=== PATIENT | male | born 1950 | race Caucasian/White ===

== ENCOUNTER 2016-11-27 06:37 | Emergency (ER) | payer BC, OTHER ==
[~2016-11-27] VITALS: Ht 177.8 cm; Wt 90.7 kg
[2016-11-27 07:14] VITALS: BP 152/85
--- NOTE | 2016-11-27 07:14 | PHYS DOC ---
Past Medical History Past Medical History: Hypertension, [place], Other Additional Past Medical Histor: ENLARGED PROSTATE Past Surgical History: Other Additional Past Surgical Histo: HERNIA, BACK, cardiac stent Alcohol Use: None Drug Use: None Adult General Chief Complaint Chief Complaint: NOSEBLEED [facility] HPI Patient is a 65 year old male who presents with intermittent nosebleeds over the past 2 weeks. His nose started bleeding this morning, and he was unable to control bleeding with direct pressure as usual, so he called EMS. He denies nasal trauma, cold-like symptoms or allergy symptoms. He denies taking blood thinners. He denies fatigue or lightheadedness. Review of Systems Review of Systems Constitutional: Denies fever or chills [] Eyes: Denies change in visual acuity, redness, or eye pain [] HENT: Denies nasal congestion or sore throat [] Respiratory: Denies cough or shortness of breath [] Cardiovascular: No additional information not addressed in HPI [] GI: Denies abdominal pain, nausea, vomiting, bloody stools or diarrhea [] : Denies dysuria or hematuria [] Musculoskeletal: Denies back pain or joint pain [] Integument: Denies rash or skin lesions [] Neurologic: Denies headache, focal weakness or sensory changes [] Endocrine: Denies polyuria or polydipsia [] Allergies Allergies Allergies Coded Allergies Type Severity Reaction Last Updated Verified No Known Drug Allergies 09/18/13 No Physical Exam Physical Exam Constitutional: Well developed, well nourished, no acute distress, non-toxic appearance. [] HENT: Normocephalic, atraumatic, bilateral external ears normal, oropharynx moist, no oral exudates. Right anterior nasal venous plexus with a formed clot; left nose normal. [] Eyes: PERRLA, EOMI. [] Neck: Normal range of motion, supple. [] Cardiovascular:Heart rate regular rhythm [] Lungs & Thorax: Bilateral breath sounds clear to auscultation [] Abdomen: Bowel sounds normal, soft, no tenderness. [] Skin: Warm, dry, no erythema, no rash. [] Back: Normal range of motion. [] Extremities: No tenderness, ROM intact. [] Neurologic: Alert and oriented X 3, normal motor function, normal sensory function, no focal deficits noted. [] Psychologic: Affect normal, judgement normal, mood normal. [] Current Patient Data Vital Signs Vital Signs Date Time Temp Pulse Resp B/P Pulse Ox O2 Delivery O2 Flow Rate FiO2 11/27/16 06:50 98.7 80 16 143/98 96 Room Air 98.7 Course & Med Decision Making Course & Med Decision Making Nosebleed controlled with nasal clamp of 10 minutes. Anticipatory guidance provided. Return precautions given. He understands and agrees with plan. Dragon Disclaimer Dragon Disclaimer This electronic medical record was generated, in whole or in part, using a voice recognition dictation system. Departure Departure Impression: Primary Impression: Acute anterior epistaxis Disposition: 01 HOME, SELF-CARE Condition: STABLE Referrals: AUSTIN FAYE Jr, MD (PCP) Patient Instructions: Nosebleed, [id number] Additional Instructions: Follow-up with your primary care doctor. Return for any concerns. Savita SAWYER MD Nov 27, 2016 07:13
== END 2016-11-27 07:22 | disposition home or self-care (01) ==
LOC: ER 06:37
DX: R04.0 Epistaxis (principal); I10 Essential (primary) hypertension; I25.2 Old myocardial infarction; Z95.5 Presence of coronary angioplasty implant and graft
CPT/HCPCS: 99283

== ENCOUNTER 2017-05-18 11:04 | Inpatient (IN) | payer BC, MEDICARE ==
[~2017-05-18] VITALS: Ht 162.6 cm; Wt 94.3 kg
--- NOTE | 2017-05-18 11:25 | EKG ---
[facility] [address] [place] [address] Test Date: 2017-05-18 Test Time: 11:17:06 Pat Name: YONI DONALD Department: Room: Gender: M [employer]: : 1950 Requested By: LANA KHAN Order Number: [id number] Reading MD: Aisha Castro Measurements Intervals Ayden Rate: 72 P: 39 GA: 192 QRS: 20 QRSD: 76 T: 11 QT: 352 QTc: 387 Interpretive Statements SINUS RHYTHM VENTRICULAR PREMATURE COMPLEX(ES) LEFT ATRIAL ABNORMALITY QRS(T) CONTOUR ABNORMALITY CONSIDER ANTEROSEPTAL MYOCARDIAL DAMAGE Electronically Signed On 05-18-2017 19:03:07 CDT by Aisha Castro
[2017-05-18 11:47] LABS: BASO % 1 % (0-3); EOS % 1 % (0-3); HEMATOCRIT 46.4 % (39.0-53.0); HEMOGLOBIN 16.3 g/dL (13.0-17.5); LYMPH % 16 % (24-48); MEAN CORPUSCULAR HEMOGLOBIN 28 pg (25-35); MEAN CORPUSCULAR HGB CONC 35 g/dL (31-37); MEAN CORPUSCULAR VOLUME 80 fL (79-100); MONO % 5 % (0-9); NEUT % 77 % (31-73); PLATELET COUNT 176 x10^3/uL (140-400); RED BLOOD COUNT 5.77 x10^6/uL (4.30-5.70); RED CELL DISTRIBUTION WIDTH 14.5 % (11.5-14.5)
--- NOTE | 2017-05-18 11:50 | PHYS DOC ---
Past Medical History Past Medical History: Hypertension, [place], Other Additional Past Medical Histor: ENLARGED PROSTATE Past Surgical History: Other Additional Past Surgical Histo: HERNIA, BACK, cardiac stent Alcohol Use: None Drug Use: None Adult General Chief Complaint Chief Complaint: SLURRED SPEECH [facility] HPI Patient is a 66 year old male presenting to the emergency department for evaluation of slurred speech this started 2 days ago. Patient denies any headache unilateral weakness numbness tingling or change in vision difficulty swallowing or ambulating. Patient says that he does not take an aspirin a day and has never had a stroke in the past. Patient seems anxious but he is in no obvious distress with normal vital signs. Review of Systems Review of Systems Constitutional: Denies fever or chills [] Eyes: Denies change in visual acuity, redness, or eye pain [] HENT: Denies nasal congestion or sore throat [] Respiratory: Denies cough or shortness of breath [] Cardiovascular: No additional information not addressed in HPI [] GI: Denies abdominal pain, nausea, vomiting, bloody stools or diarrhea [] : Denies dysuria or hematuria [] Musculoskeletal: Denies back pain or joint pain [] Integument: Denies rash or skin lesions [] Neurologic: Denies headache, focal weakness or sensory changes [] Allergies Allergies Allergies Coded Allergies Type Severity Reaction Last Updated Verified No Known Drug Allergies 09/18/13 No Physical Exam Physical Exam Constitutional: Well developed, well nourished, no acute distress, non-toxic appearance. [] HENT: Normocephalic, atraumatic, bilateral external ears normal, oropharynx moist, no oral exudates, nose normal. [] Eyes: PERRLA, EOMI, conjunctiva normal, no discharge. [] Neck: Normal range of motion, no tenderness, supple, no stridor. [] Cardiovascular:Heart rate regular rhythm, no murmur [] Lungs & Thorax: Bilateral breath sounds clear to auscultation [] Abdomen: Bowel sounds normal, soft, no tenderness, no masses, no pulsatile masses. [] Skin: Warm, dry, no erythema, no rash. [] Back: No tenderness, no CVA tenderness. [] Extremities: No tenderness, no cyanosis, no clubbing, ROM intact, no edema. [] Neurologic: Alert and oriented X 3, normal motor function, normal sensory function, no focal deficits noted. Slurred speech is noted. Current Patient Data Vital Signs Vital Signs Date Time Temp Pulse Resp B/P (MAP) Pulse Ox O2 Delivery O2 Flow Rate FiO2 05/18/17 12:21 69 20 163/94 (117) 95 05/18/17 11:09 98.1 Room Air 98.1 Lab Values Laboratory Tests Test 05/18/17 11:30 05/18/17 12:05 White Blood Count 6.0 x10^3/uL (4.0-11.0) Red Blood Count 5.77 x10^6/uL (4.30-5.70) H Hemoglobin 16.3 g/dL (13.0-17.5) Hematocrit 46.4 % (39.0-53.0) Mean Corpuscular Volume 80 fL (79-100) Mean Corpuscular Hemoglobin 28 pg (25-35) Mean Corpuscular Hemoglobin Concent 35 g/dL (31-37) Red Cell Distribution Width 14.5 % (11.5-14.5) Platelet Count 176 x10^3/uL (140-400) Neutrophils (%) (Auto) 77 % (31-73) H Lymphocytes (%) (Auto) 16 % (24-48) L Monocytes (%) (Auto) 5 % (0-9) Eosinophils (%) (Auto) 1 % (0-3) Basophils (%) (Auto) 1 % (0-3) Neutrophils # (Auto) 4.6 x10^3uL (1.8-7.7) Lymphocytes # (Auto) 1.0 x10^3/uL (1.0-4.8) Monocytes # (Auto) 0.3 x10^3/uL (0.0-1.1) Eosinophils # (Auto) 0.0 x10^3/uL (0.0-0.7) Basophils # (Auto) 0.0 x10^3/uL (0.0-0.2) Prothrombin Time 12.6 SEC (11.7-14.0) Prothrombin Time INR 1.0 (0.8-1.1) PTT 31 SEC (24-38) Sodium Level 141 mmol/L (136-145) Potassium Level 4.2 mmol/L (3.5-5.1) Chloride Level 104 mmol/L (98-107) Carbon Dioxide Level 26 mmol/L (21-32) Anion Gap 11 (6-14) Blood Urea Nitrogen 18 mg/dL (8-26) Creatinine 0.9 mg/dL (0.7-1.3) Estimated GFR (Cockcroft-Gault) 84.4 BUN/Creatinine Ratio 20 (6-20) Glucose Level 164 mg/dL (70-99) H Calcium Level 9.1 mg/dL (8.5-10.1) Magnesium Level 2.1 mg/dL (1.8-2.4) Total Bilirubin 0.8 mg/dL (0.2-1.0) Aspartate Amino Transferase (AST) 23 U/L (15-37) Alanine Aminotransferase (ALT) 28 U/L (16-63) Alkaline Phosphatase 59 U/L (46-116) Troponin I Quantitative < 0.017 ng/mL (0.000-0.055) VC-Brv-C-Type Natriuretic Peptide 88 pg/mL (0-124) Total Protein 7.8 g/dL (6.4-8.2) Albumin 3.8 g/dL (3.4-5.0) Albumin/Globulin Ratio 1.0 (1.0-1.7) Lipase 174 U/L (73-393) Thyroid Stimulating Hormone (TSH) 0.954 uIU/mL (0.358-3.74) Ethyl Alcohol Level < 10 mg/dL (0-10) Urine Collection Type Unknown Urine Color Yellow Urine Clarity Clear Urine pH 6.0 Urine Specific [place] 1.025 Urine Protein Negative mg/dL (NEG-TRACE) Urine Glucose (UA) Negative mg/dL (NEG) Urine Ketones (Stick) Negative mg/dL (NEG) Urine Blood Negative (NEG) Urine Nitrite Negative (NEG) Urine Bilirubin Negative (NEG) Urine Urobilinogen Dipstick 0.2 mg/dL (0.2 mg/dL) Urine Leukocyte Esterase Negative (NEG) Urine RBC Occ /HPF (0-2) Urine WBC Occ /HPF (0-4) Urine Squamous Epithelial Cells Occ /LPF Urine Bacteria 0 /HPF (0-FEW) Urine Mucus Mod /LPF Urine Opiates Screen Neg (NEG) Urine Methadone Screen Neg (NEG) Urine Barbiturates Neg (NEG) Urine Phencyclidine Screen Neg (NEG) Urine Amphetamine/Methamphetamine Neg (NEG) Urine Benzodiazepines Screen Neg (NEG) Urine Cocaine Screen Neg (NEG) Urine Cannabinoids Screen Neg (NEG) Urine Ethyl Alcohol Neg (NEG) Laboratory Tests 05/18/17 11:30 Laboratory Tests 05/18/17 11:30 EKG EKG [] Radiology/Procedures Radiology/Procedures Exam performed: CT scan of the head without contrast. Date of Service: 05/18/17. Comparison: Not available. Clinical History: Slurred speech. Technique: Helical acquisitions are obtained from the foramen magnum to the vertex without intravenous administration of contrast. Findings: Prominence of cortical sulci and ventricular system is noted consistent with age related atrophy. Normal sebastian-white differentiation is maintained. There is no extra axial fluid collection, intraparenchymal hemorrhage or mass lesion. The visualized portions of the orbits, paranasal sinuses and the mastoid air cells appear clear. The calvarium is intact. Impression: 1. No acute intracranial process detected. 2. Mild age-related atrophy and bilateral periventricular small vessel ischemic changes PQRS Compliance Statement: One or more of the following individualized dose reduction techniques were utilized for this examination: 1. Automated exposure control 2. Adjustment of the mA and/or kV according to patient size 3. Use of iterative reconstruction technique DICTATED and SIGNED BY: LAI RUIZ MD DATE: 05/18/17 1152 Course & Med Decision Making Course & Med Decision Making Patient with isolated slurred speech that started 2 days ago. He is not on any medications that she calls slurred speech and there is no signs of Mojica's palsy. Patient will get a stroke evaluation and possibly require admission. Dragon Disclaimer Dragon Disclaimer This electronic medical record was generated, in whole or in part, using a voice recognition dictation system. Departure Departure Impression: Primary Impression: CVA (cerebral vascular accident) Additional Impressions: Slurred speech Hypertension Disposition: HOME, SELF-CARE Condition: STABLE Referrals: AUSTIN FAYE Jr, MD (PCP) Problem Qualifiers Primary Impression: CVA (cerebral vascular accident) CVA mechanism: unspecified Qualified Codes: I63.9 - Cerebral infarction, unspecified LANA KHAN DO May 18, 2017 11:50
--- NOTE | 2017-05-18 11:56 | RAD ---
Exam performed: CT scan of the head without contrast. Date of Service: 05/18/17. Comparison: Not available. Clinical History: Slurred speech. Technique: Helical acquisitions are obtained from the foramen magnum to the vertex without intravenous administration of contrast. Findings: Prominence of cortical sulci and ventricular system is noted consistent with age related atrophy. Normal sebastian-white differentiation is maintained. There is no extra axial fluid collection, intraparenchymal hemorrhage or mass lesion. The visualized portions of the orbits, paranasal sinuses and the mastoid air cells appear clear. The calvarium is intact. Impression: 1. No acute intracranial process detected. 2. Mild age-related atrophy and bilateral periventricular small vessel ischemic changes PQRS Compliance Statement: One or more of the following individualized dose reduction techniques were utilized for this examination: 1. Automated exposure control 2. Adjustment of the mA and/or kV according to patient size 3. Use of iterative reconstruction technique
[2017-05-18 12:00] LABS: PROTHROMBIN TIME PATIENT 12.6 SEC (11.7-14.0)
[2017-05-18 12:01] LABS: CALCIUM 9.1 mg/dL (8.5-10.1); CREATININE 0.9 mg/dL (0.7-1.3); GFR 84.4; POTASSIUM 4.2 mmol/L (3.5-5.1)
[2017-05-18 12:09] LABS: ALBUMIN 3.8 g/dL (3.4-5.0); MAGNESIUM 2.1 mg/dL (1.8-2.4); TOTAL BILIRUBIN 0.8 mg/dL (0.2-1.0); TOTAL PROTEIN 7.8 g/dL (6.4-8.2)
[2017-05-18 12:29] LABS: BARBITURATES NEG (NEG); BENZODIAZEPINES NEG (NEG); BILIRUBIN,URINE NEGATIVE (NEG); CANNABINOIDS NEG (NEG); COCAINE NEG (NEG); GLUCOSE,URINE NEGATIVE (NEG); METHADONE NEG (NEG); NITRITE,URINE NEGATIVE (NEG); OPIATES NEG (NEG); PHENCYCLIDINE NEG (NEG); PROTEIN,URINE NEGATIVE (NEG-TRACE); UROBILINOGEN,URINE 0.2 mg/dL (0.2 mg/dL)
[2017-05-18] MEDS ORDERED: ASPIRIN ENTERIC COATED 325 MG TABLET.DR. PO ONE (12:45)
[2017-05-18] MEDS ORDERED: ONDANSETRON PF 4 MG/2 ML VIAL. IV PRN (12:45)
[2017-05-18 12:51] LABS: BACTERIA,URINE 0 /HPF (0-FEW); RBC,URINE OCC /HPF (0-2); SQUAMOUS EPITHELIAL CELL,UR OCC /LPF; WBC,URINE OCC /HPF (0-4)
[2017-05-18 15:30] VITALS: BP 163/88
--- NOTE | 2017-05-18 17:47 | PDOC1 ---
History and Physical Date of Admission Date of Admission DATE: 05/18/17 TIME: 17:47 Source Source: Chart review, Patient History of Present Illness History of Present Illness Mr. Christensen, is a 66 year old male admit for new slurred speech over 3 days. Seems to be worseneing. He has no other complaint or symptoms, but noticed that he was having trouble taking 3 days ago. No weakness or confusion, but he does possibly describe some minimal expressive aphasia "I just couldn't say things right" Patient denies any headache unilateral weakness numbness tingling or change in vision difficulty swallowing or ambulating. 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 Cardiovascular: CAD, HTN Pulmonary: No pertinent hx GI: No pertinent hx Hepatobiliary: No pertinent hx Psych: No pertinent hx Rheumatologic: No pertinent hx, Fibromyalgia ENT: No pertinent hx Social History Smoke: Quit (many years ago) ALCOHOL: none Drugs: None Current Problem List Problem List Problems Medical Problems: (1) Hypertension Status: Acute (2) Slurred speech Status: Acute Problems: Current Medications Current Medications Current Medications Aspirin (Ecotrin) 325 mg 1X ONCE PO Last administered on 05/18/17t 13:20; Start 05/18/17 at 12:45; Stop 05/18/17 at 12:48; Status DC Ondansetron HCl (Zofran) 4 mg PRN Q8HRS PRN IV NAUSEA/VOMITING; Start 05/18/17 at 12:45; Stop 05/19/17 at 12:44 Active Scripts Active Allergies Allergies: Coded Allergies: No Known Drug Allergies (Unverified , 09/18/13) ROS General: No: Chills, Night Sweats, Fatigue, Malaise, Appetite, Other PSYCHOLOGICAL ROS: No: Anxiety, Behavioral Disorder, Concentration difficultie , Decreased libido, Depression, Disorientation, Hallucinations, Hostility, Irritablity, Memory difficulties, Mood Swings, Obsessive thoughts, Suicidal ideation, Other Eyes: No Blurry vision, No Decreased vision, No Double vision, No Dry eyes, No Excessive tearing, No Eye Pain, No Itchy Eyes, No Loss of vision, No Photophobia , No Scotomata, No Uses contacts, No Uses glasses, No Other HEENT: No: Heacaches, Visual Changes, Hearing change, Nasal congestion, Nasal discharge, Oral lesions, Sinus pain, Sore Throat, Epistaxis, Sneezing, Snoring, Tinnitus, Vertigo, Vocal changes, Other ALLERGY AND IMMUNOLOGY: No: Hives, Insect Bite Sensitivity, Itchy/Watery Eyes, Nasal Congestion, Post Nasal Drip, Seasonal Allergies, Other Respiratory: No: Cough, Hemoptysis, Orthopnea, Pleuritic Pain, Shortness of breath, SOB with excertion, Sputum Changes, Stridor, Tachypnea, Wheezing, Other Cardiovascular: No Chest Pain, No Palpitations, No Orthopnea, No Paroxysmal Noc. Dyspnea, No Edema, No Lt Headedness, No Other Gastrointestinal: No Nausea, No Vomiting, No Abdominal Pain, No Diarrhea, No Constipation, No Melena, No Hematochezia, No Other Genitourinary: No Dysuria, No Frequency, No Incontinence, No Hematuria, No Retention, No Discharge, No Urgency, No Pain, No Flank Pain, No Other, No , No , No , No , No , No , No Musculoskeletal: No Gait Disturbance, No Joint Pain, No Joint Stiffness, No Joint Swelling, No Muscle Pain, No Muscular Weakness, No Pain In:, No Swelling In:, No Other Neurological: Yes Speech Problems, No Behavorial Changes, No Bowel/Bladder ControlChng, No Confusion, No Dizziness, No Gait Disturbance, No Headaches, No Impaired Coord/balance, No Memory Loss, No Numbness/Tingling, No Seizures, No Tremors, No Visual Changes, No Weakness, No Other Skin: No Dry Skin, No Eczema, No Hair Changes, No Lumps, No Mole Changes, No Mottling, No Nail Changes, No Pruritus, No Rash, No Skin Lesion Changes, No Other, No Acne Physical Exam General: Alert, Oriented X3, Cooperative, No acute distress HEENT: Atraumatic, PERRLA, EOMI Lungs: Clear to auscultation, Normal air movement Heart: no gallops Abdomen: Normal bowel sounds, Soft Rectal Exam: not examined Extremities: No clubbing, No edema Neuro: Normal gait, Sensation intact, Cranial nerves 3-12 NL, Other (clear on stroke scale, but slurring speech, speaking like he has marbles in his mouth, garbled speech) Psych/Mental Status: Mood NL Vitals Vitals Vital Signs Date Time Temp Pulse Resp B/P (MAP) Pulse Ox O2 Delivery O2 Flow Rate FiO2 05/18/17 13:20 70 20 161/95 (117) 95 05/18/17 11:09 98.1 Room Air 98.1 Labs Labs Laboratory Tests Test 05/18/17 11:30 05/18/17 12:05 White Blood Count 6.0 x10^3/uL (4.0-11.0) Red Blood Count 5.77 x10^6/uL (4.30-5.70) Hemoglobin 16.3 g/dL (13.0-17.5) Hematocrit 46.4 % (39.0-53.0) Mean Corpuscular Volume 80 fL (79-100) Mean Corpuscular Hemoglobin 28 pg (25-35) Mean Corpuscular Hemoglobin Concent 35 g/dL (31-37) Red Cell Distribution Width 14.5 % (11.5-14.5) Platelet Count 176 x10^3/uL (140-400) Neutrophils (%) (Auto) 77 % (31-73) Lymphocytes (%) (Auto) 16 % (24-48) Monocytes (%) (Auto) 5 % (0-9) Eosinophils (%) (Auto) 1 % (0-3) Basophils (%) (Auto) 1 % (0-3) Neutrophils # (Auto) 4.6 x10^3uL (1.8-7.7) Lymphocytes # (Auto) 1.0 x10^3/uL (1.0-4.8) Monocytes # (Auto) 0.3 x10^3/uL (0.0-1.1) Eosinophils # (Auto) 0.0 x10^3/uL (0.0-0.7) Basophils # (Auto) 0.0 x10^3/uL (0.0-0.2) Prothrombin Time 12.6 SEC (11.7-14.0) Prothromb Time International Ratio 1.0 (0.8-1.1) Activated Partial Thromboplast Time 31 SEC (24-38) Sodium Level 141 mmol/L (136-145) Potassium Level 4.2 mmol/L (3.5-5.1) Chloride Level 104 mmol/L (98-107) Carbon Dioxide Level 26 mmol/L (21-32) Anion Gap 11 (6-14) Blood Urea Nitrogen 18 mg/dL (8-26) Creatinine 0.9 mg/dL (0.7-1.3) Estimated GFR (Cockcroft-Gault) 84.4 BUN/Creatinine Ratio 20 (6-20) Glucose Level 164 mg/dL (70-99) Calcium Level 9.1 mg/dL (8.5-10.1) Magnesium Level 2.1 mg/dL (1.8-2.4) Total Bilirubin 0.8 mg/dL (0.2-1.0) Aspartate Amino Transf (AST/SGOT) 23 U/L (15-37) Alanine Aminotransferase (ALT/SGPT) 28 U/L (16-63) Alkaline Phosphatase 59 U/L (46-116) Troponin I Quantitative < 0.017 ng/mL (0.000-0.055) IS-Ccs-R-Type Natriuretic Peptide 88 pg/mL (0-124) Total Protein 7.8 g/dL (6.4-8.2) Albumin 3.8 g/dL (3.4-5.0) Albumin/Globulin Ratio 1.0 (1.0-1.7) Lipase 174 U/L (73-393) Thyroid Stimulating Hormone (TSH) 0.954 uIU/mL (0.358-3.74) Ethyl Alcohol Level < 10 mg/dL (0-10) Urine Collection Type Unknown Urine Color Yellow Urine Clarity Clear Urine pH 6.0 Urine Specific [place] 1.025 Urine Protein Negative mg/dL (NEG-TRACE) Urine Glucose (UA) Negative mg/dL (NEG) Urine Ketones (Stick) Negative mg/dL (NEG) Urine Blood Negative (NEG) Urine Nitrite Negative (NEG) Urine Bilirubin Negative (NEG) Urine Urobilinogen Dipstick 0.2 mg/dL (0.2 mg/dL) Urine Leukocyte Esterase Negative (NEG) Urine RBC Occ /HPF (0-2) Urine WBC Occ /HPF (0-4) Urine Squamous Epithelial Cells Occ /LPF Urine Bacteria 0 /HPF (0-FEW) Urine Mucus Mod /LPF Urine Opiates Screen Neg (NEG) Urine Methadone Screen Neg (NEG) Urine Barbiturates Neg (NEG) Urine Phencyclidine Screen Neg (NEG) Urine Amphetamine/Methamphetamine Neg (NEG) Urine Benzodiazepines Screen Neg (NEG) Urine Cocaine Screen Neg (NEG) Urine Cannabinoids Screen Neg (NEG) Urine Ethyl Alcohol Neg (NEG) Laboratory Tests Test 05/18/17 11:30 05/18/17 12:05 White Blood Count 6.0 x10^3/uL (4.0-11.0) Red Blood Count 5.77 x10^6/uL (4.30-5.70) Hemoglobin 16.3 g/dL (13.0-17.5) Hematocrit 46.4 % (39.0-53.0) Mean Corpuscular Volume 80 fL (79-100) Mean Corpuscular Hemoglobin 28 pg (25-35) Mean Corpuscular Hemoglobin Concent 35 g/dL (31-37) Red Cell Distribution Width 14.5 % (11.5-14.5) Platelet Count 176 x10^3/uL (140-400) Neutrophils (%) (Auto) 77 % (31-73) Lymphocytes (%) (Auto) 16 % (24-48) Monocytes (%) (Auto) 5 % (0-9) Eosinophils (%) (Auto) 1 % (0-3) Basophils (%) (Auto) 1 % (0-3) Neutrophils # (Auto) 4.6 x10^3uL (1.8-7.7) Lymphocytes # (Auto) 1.0 x10^3/uL (1.0-4.8) Monocytes # (Auto) 0.3 x10^3/uL (0.0-1.1) Eosinophils # (Auto) 0.0 x10^3/uL (0.0-0.7) Basophils # (Auto) 0.0 x10^3/uL (0.0-0.2) Prothrombin Time 12.6 SEC (11.7-14.0) Prothromb Time International Ratio 1.0 (0.8-1.1) Activated Partial Thromboplast Time 31 SEC (24-38) Sodium Level 141 mmol/L (136-145) Potassium Level 4.2 mmol/L (3.5-5.1) Chloride Level 104 mmol/L (98-107) Carbon Dioxide Level 26 mmol/L (21-32) Anion Gap 11 (6-14) Blood Urea Nitrogen 18 mg/dL (8-26) Creatinine 0.9 mg/dL (0.7-1.3) Estimated GFR (Cockcroft-Gault) 84.4 BUN/Creatinine Ratio 20 (6-20) Glucose Level 164 mg/dL (70-99) Calcium Level 9.1 mg/dL (8.5-10.1) Magnesium Level 2.1 mg/dL (1.8-2.4) Total Bilirubin 0.8 mg/dL (0.2-1.0) Aspartate Amino Transf (AST/SGOT) 23 U/L (15-37) Alanine Aminotransferase (ALT/SGPT) 28 U/L (16-63) Alkaline Phosphatase 59 U/L (46-116) Troponin I Quantitative < 0.017 ng/mL (0.000-0.055) QF-Zes-P-Type Natriuretic Peptide 88 pg/mL (0-124) Total Protein 7.8 g/dL (6.4-8.2) Albumin 3.8 g/dL (3.4-5.0) Albumin/Globulin Ratio 1.0 (1.0-1.7) Lipase 174 U/L (73-393) Thyroid Stimulating Hormone (TSH) 0.954 uIU/mL (0.358-3.74) Ethyl Alcohol Level < 10 mg/dL (0-10) Urine Collection Type Unknown Urine Color Yellow Urine Clarity Clear Urine pH 6.0 Urine Specific [place] 1.025 Urine Protein Negative mg/dL (NEG-TRACE) Urine Glucose (UA) Negative mg/dL (NEG) Urine Ketones (Stick) Negative mg/dL (NEG) Urine Blood Negative (NEG) Urine Nitrite Negative (NEG) Urine Bilirubin Negative (NEG) Urine Urobilinogen Dipstick 0.2 mg/dL (0.2 mg/dL) Urine Leukocyte Esterase Negative (NEG) Urine RBC Occ /HPF (0-2) Urine WBC Occ /HPF (0-4) Urine Squamous Epithelial Cells Occ /LPF Urine Bacteria 0 /HPF (0-FEW) Urine Mucus Mod /LPF Urine Opiates Screen Neg (NEG) Urine Methadone Screen Neg (NEG) Urine Barbiturates Neg (NEG) Urine Phencyclidine Screen Neg (NEG) Urine Amphetamine/Methamphetamine Neg (NEG) Urine Benzodiazepines Screen Neg (NEG) Urine Cocaine Screen Neg (NEG) Urine Cannabinoids Screen Neg (NEG) Urine Ethyl Alcohol Neg (NEG) VTE Prophylaxis Ordered VTE Prophylaxis Devices: No VTE Pharmacological Prophylaxi: Yes Assessment/Plan Assessment/Plan dysarthria, new w/ poss minor expressive aphasia, but this appears improved w/u TIA or CVA, neuro consult, MRI brain, Hx CAD, stent 3 years ago, non compliance meds, I discussed benefit of compliance, he seems "pre-contemplation" on the idea would benefit from B-da, low dose RUTHIE, statin, and some antiplatelet obesity, BMI 36 MAREK GRIFFIN MD May 18, 2017 17:47
[2017-05-18] MEDS ORDERED: NITR0.4T22 SL (19:26)
[2017-05-18 19:36] VITALS: BP 173/93
[2017-05-18] MEDS ORDERED: ENOXAPARIN 40 MG/0.4 ML SYRINGE. SQ SCH (21:30)
[2017-05-18 23:41] VITALS: BP 144/77
[2017-05-19 03:12] VITALS: BP 144/87
[2017-05-19 05:11] LABS: BASO % 1 % (0-3); EOS % 1 % (0-3); HEMATOCRIT 43.7 % (39.0-53.0); HEMOGLOBIN 15.2 g/dL (13.0-17.5); LYMPH # 1.3 x10^3/uL (1.0-4.8); LYMPH % 22 % (24-48); MEAN CORPUSCULAR HEMOGLOBIN 28 pg (25-35); MEAN CORPUSCULAR HGB CONC 35 g/dL (31-37); MEAN CORPUSCULAR VOLUME 81 fL (79-100); MONO % 7 % (0-9); NEUT % 69 % (31-73); PLATELET COUNT 161 x10^3/uL (140-400); RED BLOOD COUNT 5.41 x10^6/uL (4.30-5.70); RED CELL DISTRIBUTION WIDTH 14.5 % (11.5-14.5); WHITE BLOOD COUNT 5.9 x10^3/uL (4.0-11.0)
[2017-05-19 06:12] LABS: CALCIUM 8.3 mg/dL (8.5-10.1); CREATININE 0.9 mg/dL (0.7-1.3); GFR 84.4; POTASSIUM 3.8 mmol/L (3.5-5.1)
[2017-05-19 06:45] VITALS: BP 160/87
--- NOTE | 2017-05-19 10:47 | PDOC ---
PROGRESS NOTES Chief Complaint Chief Complaint dysarthria/expressive aphasia ASSESSMENT AND PLAN: 1. TIA vs CVA: sx improving. MRI brain pending. neuro consult 2. CAD: hx stents, but med noncompliance; would benefit from B-da, low dose RUTHIE, statin, and antiplatelet agent 3. HTN; had relative eron at night. start RUTHIE-I, add BB if HR stabilizes 4. HLD: (re) start statin 5. Morbid obesity, BMI 36: nutrition consult ADDENDUM: MRI with "1 cm focus of recent, probably early subacute infarct of the left posterior frontal lobe white matter." D/w pt: preventive meds a must. also needs carotid US to eval recurrence risk. wants it done on O/P basis History of Present Illness History of Present Illness feels fine, sl speech difficulties, no other sx Vitals Vitals Vital Signs Date Time Temp Pulse Resp B/P (MAP) Pulse Ox O2 Delivery O2 Flow Rate FiO2 05/19/17 06:45 98.2 71 19 160/87 (111) 95 Room Air 98.2 Physical Exam General: Alert, Oriented X3, Cooperative, No acute distress Heart: Regular rate Lungs: Clear Abdomen: Normal bowel sounds, Soft Extremities: No clubbing, No edema Labs LABS Laboratory Tests Test 05/18/17 11:30 05/18/17 12:05 05/19/17 04:20 05/19/17 04:30 White Blood Count 6.0 x10^3/uL (4.0-11.0) 5.9 x10^3/uL (4.0-11.0) Red Blood Count 5.77 x10^6/uL (4.30-5.70) 5.41 x10^6/uL (4.30-5.70) Hemoglobin 16.3 g/dL (13.0-17.5) 15.2 g/dL (13.0-17.5) Hematocrit 46.4 % (39.0-53.0) 43.7 % (39.0-53.0) Mean Corpuscular Volume 80 fL (79-100) 81 fL (79-100) Mean Corpuscular Hemoglobin 28 pg (25-35) 28 pg (25-35) Mean Corpuscular Hemoglobin Concent 35 g/dL (31-37) 35 g/dL (31-37) Red Cell Distribution Width 14.5 % (11.5-14.5) 14.5 % (11.5-14.5) Platelet Count 176 x10^3/uL (140-400) 161 x10^3/uL (140-400) Neutrophils (%) (Auto) 77 % (31-73) 69 % (31-73) Lymphocytes (%) (Auto) 16 % (24-48) 22 % (24-48) Monocytes (%) (Auto) 5 % (0-9) 7 % (0-9) Eosinophils (%) (Auto) 1 % (0-3) 1 % (0-3) Basophils (%) (Auto) 1 % (0-3) 1 % (0-3) Neutrophils # (Auto) 4.6 x10^3uL (1.8-7.7) 4.1 x10^3uL (1.8-7.7) Lymphocytes # (Auto) 1.0 x10^3/uL (1.0-4.8) 1.3 x10^3/uL (1.0-4.8) Monocytes # (Auto) 0.3 x10^3/uL (0.0-1.1) 0.4 x10^3/uL (0.0-1.1) Eosinophils # (Auto) 0.0 x10^3/uL (0.0-0.7) 0.1 x10^3/uL (0.0-0.7) Basophils # (Auto) 0.0 x10^3/uL (0.0-0.2) 0.0 x10^3/uL (0.0-0.2) Prothrombin Time 12.6 SEC (11.7-14.0) Prothromb Time International Ratio 1.0 (0.8-1.1) Activated Partial Thromboplast Time 31 SEC (24-38) Sodium Level 141 mmol/L (136-145) 141 mmol/L (136-145) Potassium Level 4.2 mmol/L (3.5-5.1) 3.8 mmol/L (3.5-5.1) Chloride Level 104 mmol/L (98-107) 107 mmol/L (98-107) Carbon Dioxide Level 26 mmol/L (21-32) 27 mmol/L (21-32) Anion Gap 11 (6-14) 7 (6-14) Blood Urea Nitrogen 18 mg/dL (8-26) 20 mg/dL (8-26) Creatinine 0.9 mg/dL (0.7-1.3) 0.9 mg/dL (0.7-1.3) Estimated GFR (Cockcroft-Gault) 84.4 84.4 BUN/Creatinine Ratio 20 (6-20) Glucose Level 164 mg/dL (70-99) 96 mg/dL (70-99) Calcium Level 9.1 mg/dL (8.5-10.1) 8.3 mg/dL (8.5-10.1) Magnesium Level 2.1 mg/dL (1.8-2.4) Total Bilirubin 0.8 mg/dL (0.2-1.0) Aspartate Amino Transf (AST/SGOT) 23 U/L (15-37) Alanine Aminotransferase (ALT/SGPT) 28 U/L (16-63) Alkaline Phosphatase 59 U/L (46-116) Troponin I Quantitative < 0.017 ng/mL (0.000-0.055) QO-Yob-Z-Type Natriuretic Peptide 88 pg/mL (0-124) Total Protein 7.8 g/dL (6.4-8.2) Albumin 3.8 g/dL (3.4-5.0) Albumin/Globulin Ratio 1.0 (1.0-1.7) Lipase 174 U/L (73-393) Thyroid Stimulating Hormone (TSH) 0.954 uIU/mL (0.358-3.74) Ethyl Alcohol Level < 10 mg/dL (0-10) Urine Collection Type Unknown Urine Color Yellow Urine Clarity Clear Urine pH 6.0 Urine Specific [place] 1.025 Urine Protein Negative mg/dL (NEG-TRACE) Urine Glucose (UA) Negative mg/dL (NEG) Urine Ketones (Stick) Negative mg/dL (NEG) Urine Blood Negative (NEG) Urine Nitrite Negative (NEG) Urine Bilirubin Negative (NEG) Urine Urobilinogen Dipstick 0.2 mg/dL (0.2 mg/dL) Urine Leukocyte Esterase Negative (NEG) Urine RBC Occ /HPF (0-2) Urine WBC Occ /HPF (0-4) Urine Squamous Epithelial Cells Occ /LPF Urine Bacteria 0 /HPF (0-FEW) Urine Mucus Mod /LPF Urine Opiates Screen Neg (NEG) Urine Methadone Screen Neg (NEG) Urine Barbiturates Neg (NEG) Urine Phencyclidine Screen Neg (NEG) Urine Amphetamine/Methamphetamine Neg (NEG) Urine Benzodiazepines Screen Neg (NEG) Urine Cocaine Screen Neg (NEG) Urine Cannabinoids Screen Neg (NEG) Urine Ethyl Alcohol Neg (NEG) Triglycerides Level 141 mg/dL (0-150) Cholesterol Level 224 mg/dL (0-200) LDL Cholesterol, Calculated 164 mg/dL (0-100) VLDL Cholesterol, Calculated 28 mg/dL (0-40) Non-HDL Cholesterol Calculated 192 mg/dL (0-129) HDL Cholesterol 32 mg/dL (40-60) Cholesterol/HDL Ratio 7.0 Vitamin B12 Level 320 pg/mL (247-911) LINDA BREWER MD May 19, 2017 10:47
[2017-05-19 11:04] VITALS: BP 172/104
[2017-05-19] MEDS ORDERED: ASPIRIN 325 MG TABLET PO SCH (12:00)
[2017-05-19 15:00] VITALS: BP 172/101
--- NOTE | 2017-05-19 15:07 | RAD ---
MRI Brain without contrast History: Slurred speech for 3 days Technique: Multiplanar, multisequential noncontrast MR imaging was performed of the brain. Contrast: None Comparison: None Findings: There is approximate 1 cm focus of restricted diffusion posterior left frontal white matter, mild T2 and FLAIR hyperintense signal. There is other multifocal moderate to severe T2 and FLAIR hyperintense abnormality of the supratentorial white matter bilaterally, lesser degree of involvement of the bilateral basal ganglia. There are old lacunar infarcts of the bilateral basal ganglia and also of the bilateral hurst radiata. There is moderate to severe T2 and FLAIR hyperintense abnormality of the mary, also old small lacunar infarcts. There are foci of old microhemorrhage including left occipital lobe, bilateral thalami, mary, right basal ganglia. There is no midline shift or extra-axial fluid collection. Ventricular size is within normal limits. Cerebral volume is considered is within normal limits for the patient's age. Cerebellar tonsils are normal in location. There is preserved marrow signal of the clivus. There is mild ethmoid air cell mucosal thickening. There is minimal fluid of the right mastoid air cells. Impression: 1. There is a 1 cm focus of recent, probably early subacute infarct of the left posterior frontal lobe white matter. 2. Other multifocal T2 and FLAIR hyperintense abnormality of the supratentorial white matter is nonspecific, most likely due to chronic microvascular ischemic disease, also multiple old lacunar infarcts as stated. There are also foci of old microhemorrhage as stated. FOR INTERNAL CODING PURPOSES Critical result: Findings discussed with patient's nurse Edwige at 05/19/2017 3:03 PM, to inform doctor of findings. RESULT CODE: (C) Electronically signed by: Nicolás Silverman MD (05/19/2017 3:04 PM) [id number]
[2017-05-19] MEDS ORDERED: ATOR40TA59 PO (15:40)
[2017-05-19] MEDS ORDERED: LISI10TA2 PO (15:40)
[2017-05-19] MEDS ORDERED: ASPI325T8 PO (16:59)
--- NOTE | 2017-05-19 17:21 | EEG ---
DATE OF SERVICE: 05/19/2017 ELECTROENCEPHALOGRAM NUMBER: [id number]. OBJECTIVE: This is a 66-year-old male patient with history of speech problem for 3 days. EEG was requested to evaluate cerebral activity and to help rule out seizure. METHODS: Twenty electrodes were applied according to the international 10-20 electrode placement system. EKG monitoring, hyperventilation, intermittent photic stimulation, monopolar and bipolar montages were routinely utilized. The record was obtained on a digital system with video monitoring. FINDINGS: 1. Background: The patient was recorded in the awake, drowsy, and asleep states. The overall background amplitude is 10-30 microvolts. A posterior dominant rhythm of 8-10 Hz is observed. 2. Abnormalities: No specific epileptiform discharge or electrographic seizure is seen. No focal or diffuse slowing. 3. Activation: Hyperventilation was performed with good efforts and normal response. Intermittent photic stimulation was performed with photic driving. No specific epileptiform discharge or electrographic seizure induced by hyperventilation or intermittent photic stimulation. IMPRESSION: This electroencephalogram is a normal study for the awake, drowsy, and asleep states. No focal, lateralizing, specific epileptiform discharge, or electrographic seizure is seen. CARLOS KOENIG MD DR: DEONNA/namita JOB#: [id number] / [id number] ANABEL
--- NOTE | 2017-05-19 20:02 | PDOC2 ---
NEUROLOGY CONSULT Date of Admission Date of Admission DATE: 05/19/17 TIME: 19:50 Reason for Consult Reason for Consult: IMPRESSION: Subacute left posterior frontal lobe WM infract. Slurred speech for 3 days before admission. HTN HLD. CAD Multiple old lacunar infarcts. Old microhemorrhage. RECOMMENDATIONS/PLAN: ASA 325 mg daily. Lipitor 40 mg HS. Carotid A US + [place] Echo + bubble study. Lab: see orders. FU with PCP. FU with Neurology in 1-2 weeks. Brain MRI w/o contrast: See above. EEG on 05/19/17: Normal. HISTORY OF THE PRESENT ILLNESS: 66-y-old male patient with above medical diseases developed symptoms of slurred speech for about 3 days to come to the ER of [facility]. He stated his speech was abnormal but now improved. He also had=s word finding difficulties but not severe. He denied symptoms of numbness or weakness. Past Medical History Cardiovascular: CAD, HTN Pulmonary: No pertinent hx GI: No pertinent hx Hepatobiliary: No pertinent hx Psych: No pertinent hx Rheumatologic: No pertinent hx, Fibromyalgia ENT: No pertinent hx PAST SURGERY HISTORY: No major surgery recently. Social History Smoke: Quit (many years ago) ALCOHOL: none Drugs: None He works in maintenance ALLERGY: NKDA Unknown MEDICATIONS: Refer to [facility] FAMILY HISTORY: Non contributory. REVIEW OF SYSTEMS: Constitutional: No malnutrition, weight loss, cachexia. Head: No traumatic brain or head injury. Skin: No edema, or rash. Ear: No infection. Eyes: No vision loss or color blindness. Nose: No bleeding or purulent discharges. Hearing: No hearing decrease. Neck: No injury. Cardiac: CAD, HTN. Pulmonary: No COPD. GI: No GI ulcer, GI bleeding. Urinary/genital: No dysuria, incontinence, urinary retention. Endocrinologic: No cousin face, craniofacial dysmorphism, polydactyly. Skeletomuscular: No muscular atrophy, deformity.. Neurological: see HP. Psychiatric: Denies drug use/abuse. Otherwise, not [id number] review of systems. PHYSICAL EXAMINATION: General appearance is in no acute distress. HEENT: Normocephalic and nontraumatic. Eyes, nose, ears, and throat are unremarkable. Neck is supple. No lymphadenopathy. No crepitus. Cardiovascular: S1, S2, regular rate and rhythm. Pulmonary: Clear to auscultation bilaterally. Abdomen: Bowel sounds are positive. Abdomen is soft, nontender, and nondistended. Extremities: No rash, lesions, or edema. No restriction of range of motion NEUROLOGICAL EXAMINATION: Alert Oriented to time, place and person. PERRL. EOMI. CN: no focal findings. Muscle tone: within normal. Muscle strength: 5 DTR: 2 Plantar reflex: Flexor response bilaterally Gait: At baseline normal. Sensory exam: no abnormal findings. No cerebellar signs elicited. F-T-N test accurate. Current Medications Current Medications Current Medications Aspirin (Ecotrin) 325 mg 1X ONCE PO Last administered on 05/18/17 13:20; Start 05/18/17 at 12:45; Stop 05/18/17 at 12:48; Status DC Ondansetron HCl (Zofran) 4 mg PRN Q8HRS PRN IV NAUSEA/VOMITING; Start 05/18/17 at 12:45; Stop 05/19/17 at 12:44; Status DC Enoxaparin Sodium (Lovenox Per Pharmacy Prophylaxis Dosing) 1 each PRN DAILY PRN MC SEE COMMENTS; Start 05/18/17 at 21:30; Stop 05/19/17 at 17:50; Status DC Enoxaparin Sodium (Lovenox 40mg Syringe) 40 mg Q24H SQ Last administered on 21:43; Start 05/18/17 at 21:30; Stop 05/19/17 at 17:50; Status DC Aspirin (Citlaly Aspirin) 325 mg DAILYWBKFT PO Last administered on 05/19/17 12 :48; Start 05/19/17 at 12:00; Stop 05/19/17 at 17:50; Status DC Atorvastatin Calcium (Lipitor) 40 mg QHS PO ; Start 05/19/17 at 21:00; Stop at 21:00; Status DC Active Scripts Active Aspirin 325 Mg Tablet 325 Mg PO DAILYWBKFT Lisinopril 10 Mg Tablet 1 Tab PO DAILY Atorvastatin Calcium 40 Mg Tablet 40 Mg PO QHS Reported NITROGLYCERIN SubLingual (Nitroglycerin) 0.4 Mg Tab.subl 0.4 Mg SL PRN Q5MIN PRN Allergies Allergies: Coded Allergies: No Known Drug Allergies (Unverified , 09/18/13) Vitals VITALS Vital Signs Date Time Temp Pulse Resp B/P (MAP) Pulse Ox O2 Delivery O2 Flow Rate FiO2 05/19/17 15:00 97.7 63 20 172/101 (124) 97 Room Air 97.7 Labs Labs Laboratory Tests Test 05/18/17 11:30 05/18/17 12:05 05/19/17 04:20 05/19/17 04:30 White Blood Count 6.0 x10^3/uL (4.0-11.0) 5.9 x10^3/uL (4.0-11.0) Red Blood Count 5.77 x10^6/uL (4.30-5.70) 5.41 x10^6/uL (4.30-5.70) Hemoglobin 16.3 g/dL (13.0-17.5) 15.2 g/dL (13.0-17.5) Hematocrit 46.4 % (39.0-53.0) 43.7 % (39.0-53.0) Mean Corpuscular Volume 80 fL (79-100) 81 fL (79-100) Mean Corpuscular Hemoglobin 28 pg (25-35) 28 pg (25-35) Mean Corpuscular Hemoglobin Concent 35 g/dL (31-37) 35 g/dL (31-37) Red Cell Distribution Width 14.5 % (11.5-14.5) 14.5 % (11.5-14.5) Platelet Count 176 x10^3/uL (140-400) 161 x10^3/uL (140-400) Neutrophils (%) (Auto) 77 % (31-73) 69 % (31-73) Lymphocytes (%) (Auto) 16 % (24-48) 22 % (24-48) Monocytes (%) (Auto) 5 % (0-9) 7 % (0-9) Eosinophils (%) (Auto) 1 % (0-3) 1 % (0-3) Basophils (%) (Auto) 1 % (0-3) 1 % (0-3) Neutrophils # (Auto) 4.6 x10^3uL (1.8-7.7) 4.1 x10^3uL (1.8-7.7) Lymphocytes # (Auto) 1.0 x10^3/uL (1.0-4.8) 1.3 x10^3/uL (1.0-4.8) Monocytes # (Auto) 0.3 x10^3/uL (0.0-1.1) 0.4 x10^3/uL (0.0-1.1) Eosinophils # (Auto) 0.0 x10^3/uL (0.0-0.7) 0.1 x10^3/uL (0.0-0.7) Basophils # (Auto) 0.0 x10^3/uL (0.0-0.2) 0.0 x10^3/uL (0.0-0.2) Prothrombin Time 12.6 SEC (11.7-14.0) Prothromb Time International Ratio 1.0 (0.8-1.1) Activated Partial Thromboplast Time 31 SEC (24-38) Sodium Level 141 mmol/L (136-145) 141 mmol/L (136-145) Potassium Level 4.2 mmol/L (3.5-5.1) 3.8 mmol/L (3.5-5.1) Chloride Level 104 mmol/L (98-107) 107 mmol/L (98-107) Carbon Dioxide Level 26 mmol/L (21-32) 27 mmol/L (21-32) Anion Gap 11 (6-14) 7 (6-14) Blood Urea Nitrogen 18 mg/dL (8-26) 20 mg/dL (8-26) Creatinine 0.9 mg/dL (0.7-1.3) 0.9 mg/dL (0.7-1.3) Estimated GFR (Cockcroft-Gault) 84.4 84.4 BUN/Creatinine Ratio 20 (6-20) Glucose Level 164 mg/dL (70-99) 96 mg/dL (70-99) Calcium Level 9.1 mg/dL (8.5-10.1) 8.3 mg/dL (8.5-10.1) Magnesium Level 2.1 mg/dL (1.8-2.4) Total Bilirubin 0.8 mg/dL (0.2-1.0) Aspartate Amino Transf (AST/SGOT) 23 U/L (15-37) Alanine Aminotransferase (ALT/SGPT) 28 U/L (16-63) Alkaline Phosphatase 59 U/L (46-116) Troponin I Quantitative < 0.017 ng/mL (0.000-0.055) AF-[place]-Q-Type Natriuretic Peptide 88 pg/mL (0-124) Total Protein 7.8 g/dL (6.4-8.2) Albumin 3.8 g/dL (3.4-5.0) Albumin/Globulin Ratio 1.0 (1.0-1.7) Lipase 174 U/L (73-393) Thyroid Stimulating Hormone (TSH) 0.954 uIU/mL (0.358-3.74) Ethyl Alcohol Level < 10 mg/dL (0-10) Urine Collection Type Unknown Urine Color Yellow Urine Clarity Clear Urine pH 6.0 Urine Specific [place] 1.025 Urine Protein Negative mg/dL (NEG-TRACE) Urine Glucose (UA) Negative mg/dL (NEG) Urine Ketones (Stick) Negative mg/dL (NEG) Urine Blood Negative (NEG) Urine Nitrite Negative (NEG) Urine Bilirubin Negative (NEG) Urine Urobilinogen Dipstick 0.2 mg/dL (0.2 mg/dL) Urine Leukocyte Esterase Negative (NEG) Urine RBC Occ /HPF (0-2) Urine WBC Occ /HPF (0-4) Urine Squamous Epithelial Cells Occ /LPF Urine Bacteria 0 /HPF (0-FEW) Urine Mucus Mod /LPF Urine Opiates Screen Neg (NEG) Urine Methadone Screen Neg (NEG) Urine Barbiturates Neg (NEG) Urine Phencyclidine Screen Neg (NEG) Urine Amphetamine/Methamphetamine Neg (NEG) Urine Benzodiazepines Screen Neg (NEG) Urine Cocaine Screen Neg (NEG) Urine Cannabinoids Screen Neg (NEG) Urine Ethyl Alcohol Neg (NEG) Triglycerides Level 141 mg/dL (0-150) Cholesterol Level 224 mg/dL (0-200) LDL Cholesterol, Calculated 164 mg/dL (0-100) VLDL Cholesterol, Calculated 28 mg/dL (0-40) Non-HDL Cholesterol Calculated 192 mg/dL (0-129) HDL Cholesterol 32 mg/dL (40-60) Cholesterol/HDL Ratio 7.0 Vitamin B12 Level 320 pg/mL (247-911) Laboratory Tests Test 05/19/17 04:20 05/19/17 04:30 White Blood Count 5.9 x10^3/uL (4.0-11.0) Red Blood Count 5.41 x10^6/uL (4.30-5.70) Hemoglobin 15.2 g/dL (13.0-17.5) Hematocrit 43.7 % (39.0-53.0) Mean Corpuscular Volume 81 fL (79-100) Mean Corpuscular Hemoglobin 28 pg (25-35) Mean Corpuscular Hemoglobin Concent 35 g/dL (31-37) Red Cell Distribution Width 14.5 % (11.5-14.5) Platelet Count 161 x10^3/uL (140-400) Neutrophils (%) (Auto) 69 % (31-73) Lymphocytes (%) (Auto) 22 % (24-48) Monocytes (%) (Auto) 7 % (0-9) Eosinophils (%) (Auto) 1 % (0-3) Basophils (%) (Auto) 1 % (0-3) Neutrophils # (Auto) 4.1 x10^3uL (1.8-7.7) Lymphocytes # (Auto) 1.3 x10^3/uL (1.0-4.8) Monocytes # (Auto) 0.4 x10^3/uL (0.0-1.1) Eosinophils # (Auto) 0.1 x10^3/uL (0.0-0.7) Basophils # (Auto) 0.0 x10^3/uL (0.0-0.2) Sodium Level 141 mmol/L (136-145) Potassium Level 3.8 mmol/L (3.5-5.1) Chloride Level 107 mmol/L (98-107) Carbon Dioxide Level 27 mmol/L (21-32) Anion Gap 7 (6-14) Blood Urea Nitrogen 20 mg/dL (8-26) Creatinine 0.9 mg/dL (0.7-1.3) Estimated GFR (Cockcroft-Gault) 84.4 Glucose Level 96 mg/dL (70-99) Calcium Level 8.3 mg/dL (8.5-10.1) Triglycerides Level 141 mg/dL (0-150) Cholesterol Level 224 mg/dL (0-200) LDL Cholesterol, Calculated 164 mg/dL (0-100) VLDL Cholesterol, Calculated 28 mg/dL (0-40) Non-HDL Cholesterol Calculated 192 mg/dL (0-129) HDL Cholesterol 32 mg/dL (40-60) Cholesterol/HDL Ratio 7.0 Vitamin B12 Level 320 pg/mL (247-911) CARLOS KOENIG MD May 19, 2017 20:02
[2017-05-19] MEDS ORDERED: ATORVASTATIN CALCIUM 40 MG TABLET. PO SCH (21:00)
--- NOTE | 2017-05-20 22:50 | DS ---
DATE OF DISCHARGE: 05/19/2017 CHIEF COMPLAINT: Dysarthria. HOSPITAL COURSE: The patient is a 66-year-old gentleman who presented to the Emergency Room with complaints of slurred speech over several days, which seemed to be worsening. He denied any other neurological symptoms. An MRI of the brain was obtained and he indeed had sustained a small 1 cm infarct in the frontal lobe. He had been noncompliant with his secondary prevention medications after CO with stent placement about 3 years ago. His previous medications have been restarted prior to MRI already including beta-da, aspirin and statin. He was monitored and with stability and actually slight improvement in his speech, he was discharged to home on his own cognizance. Ultrasound of his carotids will be done on an outpatient basis. PHYSICAL EXAMINATION: VITAL SIGNS: Show a blood pressure of 160/87, heart rate of 71, respiratory rate at 19. He is afebrile. GENERAL: This is a 66-year-old gentleman, obese, in no acute distress. HEENT: Shows no scleral icterus. LUNGS: Clear. HEART: Regular rate and rhythm. ABDOMEN: Has positive bowel sounds, obese. EXTREMITIES: Show no edema. Speech shows slight dysarthria. DISCHARGE DIAGNOSIS: Cerebrovascular accident, subacute. DISCHARGE DISPOSITION: To home. DISCHARGE CONDITION: Improved. DISCHARGE MEDICATIONS: Please refer to [facility]. DISCHARGE INSTRUCTIONS: The patient will follow up with PCP and have ultrasound of bilateral carotids done. LINDA BREWER MD DR: KATE/nts JOB#: [id number] / [id number] AUSTIN Mills MD
== END 2017-05-19 17:50 | disposition home or self-care (01) | DRG 66 ==
LOC: ER 11:04 → ED HOLD 12:28 → 6 SOUTH 16:21
PROVIDERS: ADMIT Internal Medicine; ATTEND Internal Medicine
DX: I63.9 Cerebral infarction, unspecified (principal); R47.01 Aphasia; I10 Essential (primary) hypertension; E66.01 Morbid (severe) obesity due to excess calories; E78.5 Hyperlipidemia, unspecified; I25.10 Atherosclerotic heart disease of native coronary artery without angina pectoris; N40.0 Benign prostatic hyperplasia without lower urinary tract symptoms; Z68.36 Body mass index [BMI] 36.0-36.9, adult; Z79.82 Long term (current) use of aspirin; Z79.899 Other long term (current) drug therapy; Z91.14 Patient's other noncompliance with medication regimen; Z91.19 Patient's noncompliance with other medical treatment and regimen; Z95.5 Presence of coronary angioplasty implant and graft
CPT/HCPCS: 36415; 70450; 70551; 80048; 80053; 80061; 80307; 81001; 82607; 83690; 83735; 83880; 84443; 84484; 85025; 85610; 85730; 93005; 95816; G0480; J1650; 99285-25; G0479